=== PATIENT | male | born 1950 | race Caucasian/White ===

== ENCOUNTER 2016-10-27 11:22 | Outpatient (RCR) | payer MEDICARE, BC | END 2016-11-08 | disposition home or self-care (01) | LOC: WCC 11:22 | DX: L89.154 Pressure ulcer of sacral region, stage 4 (principal); N18.6 End stage renal disease; Z99.2 Dependence on renal dialysis; G82.20 Paraplegia, unspecified | CPT/HCPCS: 11042 ==

== ENCOUNTER 2018-03-01 11:42 | Outpatient (RCR) | payer MEDICARE, BC | END 2018-03-08 | disposition home or self-care (01) | LOC: WCC 11:42 | DX: L89.219 Pressure ulcer of right hip, unspecified stage (principal); L89.612 Pressure ulcer of right heel, stage 2; N18.6 End stage renal disease; Z99.2 Dependence on renal dialysis | CPT/HCPCS: 11043 ==

== ENCOUNTER 2018-03-22 12:05 | Outpatient (RCR) | payer MEDICARE, BC | END 2018-04-07 | disposition home or self-care (01) | LOC: WCC 12:05 | DX: L89.154 Pressure ulcer of sacral region, stage 4 (principal); L89.214 Pressure ulcer of right hip, stage 4; N18.6 End stage renal disease; G82.20 Paraplegia, unspecified | CPT/HCPCS: 11042; 11056 ==

== ENCOUNTER 2018-04-12 11:57 | Outpatient (RCR) | payer MEDICARE, BC | END 2018-05-08 | disposition home or self-care (01) | LOC: WCC 11:57 | DX: L89.214 Pressure ulcer of right hip, stage 4 (principal); L89.154 Pressure ulcer of sacral region, stage 4; N18.6 End stage renal disease; G82.20 Paraplegia, unspecified; L84 Corns and callosities | CPT/HCPCS: 11043 ==

== ENCOUNTER 2018-05-10 12:19 | Outpatient (RCR) | payer MEDICARE, BC | END 2018-06-08 | disposition home or self-care (01) | LOC: WCC 12:19 | DX: L89.213 Pressure ulcer of right hip, stage 3 (principal); G82.22 Paraplegia, incomplete; T86.12 Kidney transplant failure; L89.612 Pressure ulcer of right heel, stage 2; L89.214 Pressure ulcer of right hip, stage 4; L89.154 Pressure ulcer of sacral region, stage 4; N18.6 End stage renal disease | CPT/HCPCS: 11043; 15271; Q4132; Q4133 ==

== ENCOUNTER 2018-06-28 12:04 | Outpatient (RCR) | payer MEDICARE, BC | END 2018-07-08 | disposition home or self-care (01) | LOC: WCC 12:04 | DX: L89.214 Pressure ulcer of right hip, stage 4 (principal); L89.154 Pressure ulcer of sacral region, stage 4; N18.6 End stage renal disease; Z99.2 Dependence on renal dialysis; G82.20 Paraplegia, unspecified | CPT/HCPCS: 11043 ==

== ENCOUNTER 2018-07-19 12:51 | Outpatient (RCR) | payer MEDICARE, BC | END 2018-08-08 | disposition home or self-care (01) | LOC: WCC 12:51 | DX: L89.152 Pressure ulcer of sacral region, stage 2 (principal); L89.214 Pressure ulcer of right hip, stage 4; N18.6 End stage renal disease; Z99.2 Dependence on renal dialysis; G82.20 Paraplegia, unspecified | CPT/HCPCS: 11042; 11043 ==

== ENCOUNTER 2018-09-20 09:33 | Outpatient (RCR) | payer MEDICARE, BC | END 2018-10-08 | disposition home or self-care (01) | LOC: WCC 09:33 | DX: L89.213 Pressure ulcer of right hip, stage 3 (principal); G82.22 Paraplegia, incomplete; T86.12 Kidney transplant failure; L89.612 Pressure ulcer of right heel, stage 2; N18.6 End stage renal disease; L84 Corns and callosities; L89.214 Pressure ulcer of right hip, stage 4; L89.312 Pressure ulcer of right buttock, stage 2 | CPT/HCPCS: G0463 ==

== ENCOUNTER 2018-10-11 10:17 | Outpatient (RCR) | payer MEDICARE, BC | END 2018-11-08 | disposition home or self-care (01) | LOC: WCC 10:17 | DX: L89.213 Pressure ulcer of right hip, stage 3 (principal); G82.22 Paraplegia, incomplete; T86.12 Kidney transplant failure; L89.612 Pressure ulcer of right heel, stage 2; N18.6 End stage renal disease; L84 Corns and callosities; L89.214 Pressure ulcer of right hip, stage 4; L89.312 Pressure ulcer of right buttock, stage 2; R60.0 Localized edema; M79.671 Pain in right foot | CPT/HCPCS: G0463 ×3 ==

== ENCOUNTER 2018-11-13 13:27 | Outpatient (RCR) | payer MEDICARE, BC | END 2018-12-06 | disposition home or self-care (01) | LOC: WCC 13:27 | DX: L89.213 Pressure ulcer of right hip, stage 3 (principal); G82.22 Paraplegia, incomplete; T86.12 Kidney transplant failure; L89.612 Pressure ulcer of right heel, stage 2; L84 Corns and callosities; L89.214 Pressure ulcer of right hip, stage 4; L89.312 Pressure ulcer of right buttock, stage 2; R60.0 Localized edema; M79.671 Pain in right foot; N18.6 End stage renal disease; Z99.2 Dependence on renal dialysis | CPT/HCPCS: G0463 ==

== ENCOUNTER 2019-02-07 11:44 | Outpatient (RCR) | payer MEDICARE, BC | END 2019-03-08 | disposition home or self-care (01) | LOC: WCC 11:44 | DX: L89.153 Pressure ulcer of sacral region, stage 3 (principal); L89.322 Pressure ulcer of left buttock, stage 2; G82.20 Paraplegia, unspecified; N18.6 End stage renal disease; Z99.2 Dependence on renal dialysis | CPT/HCPCS: G0463 ==

== ENCOUNTER 2019-04-04 12:03 | Outpatient (RCR) | payer MEDICARE, BC | END 2019-04-07 | disposition home or self-care (01) | LOC: WCC 12:03 | DX: L02.415 Cutaneous abscess of right lower limb (principal); N18.6 End stage renal disease | CPT/HCPCS: 10060; 87070; 87181; 87205 ==

== ENCOUNTER 2019-04-18 12:59 | Outpatient (RCR) | payer MEDICARE, BC ==
[~2019-04-18] VITALS: Ht 182.9 cm; Wt 74.8 kg
[2019-04-18] MEDS ORDERED: Lidocaine 2% 20mg/ml/EPI 0.01mg/ml 20ml IV ONE (17:00)
[2019-04-18] MEDS ORDERED: Lidocaine 2% MPF 5ml Vial INJ ONE (17:00)
== END 2019-05-08 | disposition home or self-care (01) ==
LOC: WCC 12:59
DX: L02.415 Cutaneous abscess of right lower limb (principal); G82.20 Paraplegia, unspecified; N18.6 End stage renal disease
CPT/HCPCS: 10061; 11042; 87070; 87181; 87205

== ENCOUNTER 2019-07-11 11:55 | Outpatient (RCR) | payer MEDICARE, BC | END 2019-08-08 | disposition home or self-care (01) | LOC: WCC 11:55 | DX: T81.32XD Disruption of internal operation (surgical) wound, not elsewhere classified, subsequent encounter (principal); N18.9 Chronic kidney disease, unspecified; G82.21 Paraplegia, complete; X58.XXXD Exposure to other specified factors, subsequent encounter; N18.6 End stage renal disease; Z99.2 Dependence on renal dialysis | CPT/HCPCS: 11042; 15271; Q4187 ==